=== PATIENT | female | born 1930 | race Caucasian/White ===

== ENCOUNTER 2016-12-06 14:54 | Emergency (ER) | payer MEDICARE ==
[2016-12-06] MEDS ORDERED: Zofran 4 MG/2 ML VIAL IV ONE (15:26)
[2016-12-06] MEDS ORDERED: SUBLIMAZE 100 MCG/2 ML IV ONE (15:26)
[2016-12-06] MEDS ORDERED: Sodium Chloride 0.9% 1000 ML 1,000 ML IV SCH (15:30)
[2016-12-06] MEDS ORDERED: SUBLIMAZE 100 MCG/2 ML ONE (15:34)
[2016-12-06] MEDS ORDERED: Sodium Chloride 0.9% 1000 ML 1,000 ML ONE (15:34)
[2016-12-06] MEDS ORDERED: Zofran 4 MG/2 ML VIAL ONE (15:34)
--- NOTE | 2016-12-06 15:38 | ERPHSYRPT ---
- History of Present Illness Time Seen by Provider: 12/06/16 15:25 Source: patient Exam Limitations: clinical condition Patient Subjective Stated Complaint: pt co headache and htn at home today, took norco with no relief, states b/p was 200/100 at home Triage Nursing Assessment: pt alert and in no distress, resp easy, skin w/d . Physician History: PATIENT WITH HISTORY OF HYPERTENSION, DIABETES HAS FRONTAL HEADACHE, NOTICE ELEVATED BLOOD PRESSURE AT HOME TODAY. HAS NO RELIEF AFTER TAKING NORCO 10/326 EVERY 6 HOURS NEEDED. DENIES BLURRED VISION, SLURRED SPEECH, NUMBNESS, TINGLING OR WEAKNESS IN EXTREMITIES. HAS HAD YELLOWISH NASAL DRAINAGE OVER THE PAST WEEK. DENIES FEVER OR CHILLS. Timing/Duration: today Quality: throbbing Head Pain Location: frontal Severity of Pain-Max: moderate Severity of Pain-Current: moderate Recent Head Trauma: frequent headaches Modifying Factors: Improves With: medication Associated Symptoms: facial pain Previous symptoms: same symptoms as today Allergies/Adverse Reactions: fenoprofen calcium [From Nalfon] Allergy (Mild, Verified 12/06/16 15:10) Sulfa (Sulfonamide Antibiotics) [Sulfa(Sulfonamide Antibiotics)] Allergy ( Verified 12/06/16 15:10) Home Medications: Allopurinol 300 mg [Zyloprim 300 mg] 300 mg PO DAILY 10/23/13 [History] Alprazolam 0.5 mg [xanAX 0.5 MG] 0.5 mg PO Q12H PRN 10/23/13 [History] Furosemide 40 mg [Lasix 40 MG] 40 mg PO BID 10/23/13 [History] Glyburide [Diabeta] 2.5 mg PO DAILY 10/23/13 [History] Hydrocodone Bit/Acetaminophen [[place] 10-325 Tablet] 1 each PO QID PRN 10/23/13 [ History] Insulin Detemir [Levemir] 8 unit SQ HS 10/23/13 [History] Levothyroxine Sodium 175 Mcg [Synthroid 175 MCG] 175 mcg PO DAILY 10/23/13 [ History] PANTOPRAZOLE 40 mg Tablet [Protonix 40MG Tablet] 40 mg PO BID 10/23/13 [ History] Sucralfate 1 gm [Carafate 1 GM] 1 gm PO BID 10/23/13 [History] Vancomycin HCl [Vancomycin 25Mg/ml Compound Kit] 50 mg DAILY 12/06/16 [History] Hx Tetanus, Diphtheria Vaccination/Date Given: Yes (2008) Hx Influenza Vaccination/Date Given: Yes Hx Pneumococcal Vaccination/Date Given: Yes - Review of Systems Constitutional: No Symptoms, No Fever, No Chills Eyes: No Symptoms Ears, Nose, & Throat: No Symptoms Respiratory: No Symptoms, No Cough, No Dyspnea Cardiac: No Symptoms, No Chest Pain, No Edema, No Syncope Abdominal/Gastrointestinal: No Symptoms, No Abdominal Pain, No Nausea, No Vomiting, No Diarrhea Genitourinary Symptoms: No Symptoms, No Dysuria Musculoskeletal: No Symptoms, No Back Pain, No Neck Pain Skin: No Symptoms, No Rash Neurological: No Dizziness, No Focal Weakness, No Sensory Changes Psychological: No Symptoms Endocrine: No Symptoms All Other Systems: Reviewed and Negative - Past Medical History Pertinent Past Medical History: Yes Neurological History: No Pertinent History ENT History: Cataracts Cardiac History: Hypertension Respiratory History: Bronchitis, Pneumonia Endocrine Medical History: Diabetes Type II, Hypothyroidism Musculoskeletal History: Arthritis, Osteoarthritis GI Medical History: Hernia, Gallbladder Disease, Colorectal Cancer History: No Pertinent History Psycho-Social History: No Pertinent History Female Reproductive Disorders: No Pertinent History Other Medical History: skin ca of scalp removed jun 2013 - Past Surgical History Past Surgical History: Yes Neuro Surgical History: No Pertinent History Cardiac: No Pertinent History Respiratory: No Pertinent History Gastrointestinal: Colon Resection, Appendectomy, Cholecystectomy Genitourinary: No Pertinent History Musculoskeletal: Joint Replacement, Orthopedic Surgery Female Surgical History: Hysterectomy Other Surgical History: knee surg,shoulder surg - Social History Smoking Status: Never smoker Exposure to second hand smoke: No Alcohol Use: None Drug Use: none Patient Lives Alone: Yes Significant Family History: no pertinent family hx - Female History Hx Last Menstrual Period: post Hx Now: No - Nursing Vital Signs Nursing Vital Signs: Initial Vital Signs Temperature 97.7 F Temperature Source Oral Pulse Rate 58 Respiratory Rate 18 Blood Pressure [] 137/73 Pain Intensity 0 - Physical Exam General Appearance: no apparent distress Eye Exam: PERRL/EOMI Ears, Nose, Throat Exam: normal ENT inspection, moist mucous membranes, other ( PERCUSSION TENDERNES BILATERAL MAXILLARY AND FRONTAL SINUSES) Neck Exam: normal inspection, supple, full range of motion, No meningismus Respiratory Exam: normal breath sounds, lungs clear Cardiovascular Exam: regular rate/rhythm, normal heart sounds Gastrointestinal/Abdominal Exam: soft, No tenderness, No distention Back Exam: normal inspection, normal range of motion Mental Status Exam: alert, oriented x 3, 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 Exam: normal speech, PERRL, No facial droop Coordination/Gait Exam: normal cerebellar function Motor/Sensory Exam: no motor deficit, no sensory deficit Skin Exam: normal color, warm, dry, No rash SpO2: 95 Oxygen Delivery: Room Air - CT Exams Head CT Interpretation: Discussed w/radiologist (STABLE NONACUTE SENILE BRAIN) Ordered Tests: Active Orders 24 hr Category Date Time Status Oxygen-ED Only NASAL CANNULA 2 lpm Care 12/06/16 15:26 Active HEAD WITHOUT CONTRAST [CT] Stat Exams 12/06/16 15:27 Completed BMP Stat Lab 12/06/16 15:35 Completed CBC W DIFF Stat Lab 12/06/16 15:35 Completed Medication Summary Generic Name Dose Route Start Last Admin Trade Name Freq PRN Reason Stop Dose Admin Sodium Chloride 1,000 mls @ 50 mls/hr 12/06/16 15:30 12/06/16 15:36 Sodium Chloride 0.9% 1000 Ml IV 01/05/17 15:29 50 mls/hr .Q20H HERRERA Administration Discontinued Medications Generic Name Dose Route Start Last Admin Trade Name Freq PRN Reason Stop Dose Admin Fentanyl Citrate 50 mcg 12/06/16 15:26 12/06/16 15:36 Sublimaze 100 Mcg/2 Ml IV 12/06/16 15:27 50 mcg STAT ONE Administration Fentanyl Citrate Confirm 12/06/16 15:34 Sublimaze 100 Mcg/2 Ml Administered 12/06/16 15:35 Dose 100 mcg .ROUTE .STK-MED ONE Sodium Chloride Confirm 12/06/16 15:34 Sodium Chloride 0.9% 1000 Ml Administered 12/06/16 15:35 Dose 1,000 mls @ ud .ROUTE .STK-MED ONE Ceftriaxone Sodium/Dextrose 50 mls @ 100 mls/hr 12/06/16 17:41 12/06/16 17:43 Rocephin 1 Gm-D5w 50 Ml Bag IV 12/06/16 18:10 100 mls/hr STAT ONE Administration Ceftriaxone Sodium/Dextrose Confirm 12/06/16 17:41 Rocephin 1 Gm-D5w 50 Ml Bag Administered 12/06/16 17:42 Dose 50 mls @ ud IV .STK-MED ONE Ondansetron HCl 4 mg 12/06/16 15:26 12/06/16 15:36 Zofran 4 Mg/2 Ml Vial IV 12/06/16 15:27 4 mg STAT ONE Administration Ondansetron HCl Confirm 12/06/16 15:34 Zofran 4 Mg/2 Ml Vial Administered 12/06/16 15:35 Dose 4 mg .ROUTE .STK-MED ONE Lab/Rad Data: Laboratory Result Diagrams 12/06/16 15:35 12/06/16 15:35 Laboratory Results 12/06/16 12/06/16 Range/Units 15:35 15:35 WBC 6.7 (4.0-10.5) K/mm3 RBC 3.54 L (4.1-5.4) M/mm3 Hgb 11.3 L (12.0-16.0) gm/dl Hct 34.8 L (35-47) % MCV 98.3 (78-100) fl MCH 31.9 (26-32) pg MCHC 32.5 (32-36) g/dl RDW 11.7 (11.5-14.0) % Plt Count 176 (150-450) K/mm3 MPV 10.0 H (6-9.5) fl Gran % 56.0 (36.0-66.0) % Lymphocytes % 32.2 (24.0-44.0) % Monocytes % 8.9 (0.0-12.0) % Eosinophils % 2.6 (0.00-5.0) % Basophils % 0.3 (0.0-0.4) % Basophils # 0.02 (0-0.4) Sodium 132 L (136-145) mEq/L Potassium 4.3 (3.5-5.1) mEq/L Chloride 97 L (98-107) mEq/L Carbon Dioxide 28.2 (21-32) mEq/L Anion Gap 11.5 (5-15) MEQ/L BUN 19 (9-20) mg/dL Creatinine 1.29 (0.55-1.30) mg/dl Estimated GFR 41 ML/MIN Glucose 230 H (70-110) MG/DL Calcium 8.5 (8.5-10.1) mg/dL - Progress Progress: improved, re-examined Progress Note: 12/06/16 17:42 PATIENT GIVEN IV NORMAL SALINE 50ML/HR, ZOFRAN 4MG, FENTANYL 50MCG IV, ROCEPHIN 1 GM IVPB Blood Culture(s) Obtained: No Antibiotics given: Yes Counseled pt/family regarding: lab results, diagnosis, need for follow-up, rad results - Departure Time of Disposition: 18:25 Departure Disposition: Home Clinical Impression: ACUTE MAXILLARY/FRONTAL SINUSITIS Condition: Stable Critical Care Time: No Referrals: NIALL BRITO MD [Primary Care Provider] - Additional Instructions: ANTIBIOTIC CEFTIN 250MG TWICE DAILY FOR 10 DAYS. CONTINUE ALL CURRENT MEDICATIONS. FOLLOWUP WITH FAMILY PHYSICIAN FOR EVALUATION IN 1 WEEK. Prescriptions: Cefuroxime Axetil [Cefuroxime] 250 mg PO BID #20 tablet
[2016-12-06 15:48] LABS: BASOPHIL % 0.3 % (0.0-0.4); Eosinophil % 2.6 % (0.00-5.0); Lymphocytes % 32.2 % (24.0-44.0); Mean Cell Volume 98.3 fl (78-100); Mean Corpuscular Hemoglobin 31.9 pg (26-32); Monocytes % 8.9 % (0.0-12.0); Platelet Count 176 K/mm3 (150-450); Red Blood Count 3.54 M/mm3 (4.1-5.4); Red Cell Distribution Width 11.7 % (11.5-14.0); White Blood Count 6.7 K/mm3 (4.0-10.5)
[2016-12-06 16:12] LABS: ANION GAP 11.5 MEQ/L (5-15); Carbon Dioxide 28.2 mEq/L (21-32); Potassium 4.3 mEq/L (3.5-5.1)
--- NOTE | 2016-12-06 16:29 | XRAY ---
Indication: Frontal headache for a couple of days. Elevated blood pressure. Multiple contiguous axial images obtained through the head without contrast. Comparison: April 02, 2016 Stable age-appropriate global atrophy and minimal periventricular degenerative micro-ischemia. No acute intracranial hemorrhage, abnormal extra-axial fluid collection, or mass effect. Fourth ventricle is midline without hydrocephalus. Maradiaga-white matter differentiation preserved. Bony calvarium intact again with diffuse thickened calvarium. Visualized brain is insensitive mastoid air cells are pneumatized and clear. Impression: Stable nonacute senile brain. CTDI 69.52
[2016-12-06] MEDS ORDERED: ROCEPHIN 1 Gm-D5w 50 ml Bag** 50 ML IV ONE ×2 (17:41)
[2016-12-06 17:48] VITALS: O2SAT 95
[2016-12-06 18:37] VITALS: BP 141/54; PULSE 62
== END 2016-12-06 18:36 | disposition home or self-care (01) ==
LOC: ED 14:54
DX: J01.00 Acute maxillary sinusitis, unspecified (principal); J01.10 Acute frontal sinusitis, unspecified; R51 Headache; I10 Essential (primary) hypertension; E11.9 Type 2 diabetes mellitus without complications
CPT/HCPCS: 36415; 70450; 80048; 85025; 96360; 96361; 96365; 96374; 96375; 99283; J0696; J2405; J3010

== ENCOUNTER 2017-07-16 10:57 | Emergency (ER) | payer MEDICARE ==
--- NOTE | 2017-07-16 11:31 | ERPHSYRPT ---
- History of Present Illness Time Seen by Provider: 07/16/17 11:26 Source: patient Exam Limitations: no limitations Patient Subjective Stated Complaint: pt states she is out of her percocet and she is only in the ER for a drug refill until she can see her Dr on Tuesday. pt currently taking chronic pain medication. Triage Nursing Assessment: pt pink, warm, dry. pt ambulated into ER without difficulty with cane. Physician History: 87 y/o female with history of chronic pain of her back and recently had skin cancer removed from her left leg comes to the ER after almost running out of her percocets and only has 2 left. Pt had a prescription called in for Tuesday and is only requesting enough to hold her off until then. Pt describes her pain as aching, constant, 05/16 and is due to take her percocet at 12 pm. Timing/Duration: today Severity: severe Modifying Factors: Improves With: nothing Associated Symptoms: denies symptoms Allergies/Adverse Reactions: fenoprofen calcium [From Nalfon] Allergy (Mild, Verified 07/16/17 11:12) Sulfa (Sulfonamide Antibiotics) [Sulfa(Sulfonamide Antibiotics)] Allergy ( Verified 07/16/17 11:12) Home Medications: Allopurinol 300 mg [Zyloprim 300 mg] 300 mg PO DAILY 10/23/13 [History] Alprazolam 0.5 mg [xanAX 0.5 MG] 0.5 mg PO Q12H PRN 10/23/13 [History] Furosemide 40 mg [Lasix 40 MG] 40 mg PO BID 10/23/13 [History] Glyburide [Diabeta] 2.5 mg PO DAILY 10/23/13 [History] Insulin Detemir [Levemir] 15 unit SQ HS 10/23/13 [History] Levothyroxine Sodium 175 Mcg [Synthroid 175 MCG] 175 mcg PO DAILY 10/23/13 [ History] PANTOPRAZOLE 40 mg Tablet [Protonix 40MG Tablet] 40 mg PO BID 10/23/13 [ History] Sucralfate 1 gm [Carafate 1 GM] 1 gm PO BID 10/23/13 [History] Insulin Detemir [Levemir] 22 unit SQ DAILY 07/16/17 [History] Oxycodone HCl/Acetaminophen [Oxycodone-Acetaminophen 5-325] 1 each PO Q6H PRN PRN 07/16/17 [History] Hx Tetanus, Diphtheria Vaccination/Date Given: Yes (up to date) Hx Influenza Vaccination/Date Given: Yes (2015) Hx Pneumococcal Vaccination/Date Given: Yes Immunizations Up to Date: Yes - Review of Systems Constitutional: No Fever, No Chills Eyes: No Symptoms Ears, Nose, & Throat: No Symptoms Respiratory: No Cough, No Dyspnea Cardiac: No Chest Pain, No Edema, No Syncope Abdominal/Gastrointestinal: No Abdominal Pain, No Nausea, No Vomiting, No Diarrhea Genitourinary Symptoms: No Dysuria Musculoskeletal: Back Pain, Myalgias, No Neck Pain Skin: No Rash Neurological: No Dizziness, No Focal Weakness, No Sensory Changes Psychological: No Symptoms Endocrine: No Symptoms All Other Systems: Reviewed and Negative - Past Medical History Pertinent Past Medical History: Yes Neurological History: No Pertinent History ENT History: Cataracts Cardiac History: Hypertension Respiratory History: Bronchitis, Pneumonia Endocrine Medical History: Diabetes Type II, Hypothyroidism Musculoskeletal History: Arthritis, Osteoarthritis GI Medical History: Hernia, Gallbladder Disease, Colorectal Cancer History: No Pertinent History Psycho-Social History: No Pertinent History Female Reproductive Disorders: No Pertinent History Other Medical History: skin ca of scalp removed jun 2013 - Past Surgical History Past Surgical History: Yes Neuro Surgical History: No Pertinent History Cardiac: No Pertinent History Respiratory: No Pertinent History Gastrointestinal: Colon Resection, Appendectomy, Cholecystectomy Genitourinary: No Pertinent History Musculoskeletal: Joint Replacement, Orthopedic Surgery Female Surgical History: Hysterectomy Other Surgical History: knee surg,shoulder surg - Social History Smoking Status: Never smoker Exposure to second hand smoke: Yes Alcohol Use: None Drug Use: none Patient Lives Alone: No Significant Family History: no pertinent family hx - Female History Hx Now: No - Nursing Vital Signs Nursing Vital Signs: Initial Vital Signs Temperature 97.5 F 07/16/17 11:07 Pulse Rate 74 07/16/17 11:07 Respiratory Rate 18 07/16/17 11:07 Blood Pressure 137/88 07/16/17 11:07 O2 Sat by Pulse Oximetry 96 07/16/17 11:07 Pain Scale Pain Intensity 6 - Physical Exam General Appearance: mild distress, alert Eye Exam: PERRL/EOMI, eyes nml inspection Ears, Nose, Throat Exam: normal ENT inspection, TMs normal, pharynx normal, moist mucous membranes Neck Exam: normal inspection, non-tender, supple, full range of motion Respiratory Exam: normal breath sounds, lungs clear, No respiratory distress Cardiovascular Exam: regular rate/rhythm, normal heart sounds, normal peripheral pulses Gastrointestinal/Abdomen Exam: soft, normal bowel sounds, No tenderness, No mass Back Exam: normal inspection, normal range of motion, No CVA tenderness, No vertebral tenderness Extremity Exam: normal inspection, normal range of motion, pelvis stable Neurologic Exam: alert, oriented x 3, cooperative, normal mood/affect, nml cerebellar function, nml station & gait, sensation nml, No motor deficits Skin Exam: normal color, warm, dry, No rash Lymphatic Exam: No adenopathy SpO2: 96 Oxygen Delivery: Room Air - Course Nursing assessment & vital signs reviewed: Yes - Progress Progress: unchanged Progress Note: 07/16/17 11:29 Pt will be given a script for percocet 5/325 PO Q 6 hrs, dispense: 8 and 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 Prescriptions: Oxycodone HCl/Acetaminophen [Percocet 5-325 mg Tablet] 1 each PO Q6HPRN PRN #8 tablet PRN Reason: Pain
[2017-07-16 11:46] VITALS: BP 158/85; PULSE 76; O2SAT 98
== END 2017-07-16 11:46 | disposition home or self-care (01) ==
LOC: ED 10:57
DX: M54.5 Low back pain (principal); G89.29 Other chronic pain; Z79.899 Other long term (current) drug therapy
CPT/HCPCS: 99283